=== PATIENT | female | born 1980 | race Caucasian/White ===

== ENCOUNTER 2019-12-11 11:30 | Day surgery (SDC) | payer OTHER ==
[~2019-12-11] VITALS: Ht 162.6 cm; Wt 61.4 kg
[~2019-12-11 11:30] MED LIST: BUPIVACAINE/PF 0.5% ONE; LIDOCAINE/PF 1%, 30ML ONE
[2019-12-11] MEDS ORDERED: LACTATED RINGERS 1,000 ML IV ONE (12:02)
[2019-12-11] MEDS ORDERED: CHLORHEXIDINE 15 ML UDC MM STA (12:02)
[2019-12-11] MEDS ORDERED: FENTANYL PF 100 MCG/2ML IV PRN (12:30)
[2019-12-11] MEDS ORDERED: PROMETHAZINE 25 MG/ML, 1ML IVPush PRN (12:30)
[2019-12-11] MEDS ORDERED: ACETAMINOPHEN 325 MG TABLET PO PRN (12:30)
[2019-12-11] MEDS ORDERED: MEPERIDINE/PF 25MG/0.5ML IVPush PRN (12:30)
[2019-12-11] MEDS ORDERED: DIAZEPAM 5 MG/ML, 2ML IVPush PRN (12:30)
[2019-12-11] MEDS ORDERED: LABETALOL 5MG/ML, 20ML IV PRN (12:30)
[2019-12-11] MEDS ORDERED: ONDANSETRON 2MG/ML, 2ML IVPush PRN (12:30)
[2019-12-11] MEDS ORDERED: OXYcodone 5 MG/5 ML ORAL.SOL UDC PO PRN (12:30)
[2019-12-11] MEDS ORDERED: DIPHENHYDRAMINE 50 MG/ML, 1ML IVPush PRN (12:30)
[2019-12-11] MEDS ORDERED: HYDROmorphone 1 MG/ML, 1ML INJ IVPush PRN (12:30)
[2019-12-11 12:36] VITALS: BP 112/71
[2019-12-11] MEDS ORDERED: baclofen (12:36)
[2019-12-11] MEDS ORDERED: IBUP-1223 PO (12:36)
[2019-12-11] MEDS ORDERED: FENTANYL PF 250 MCG/5ML ONE (12:39)
[2019-12-11] MEDS ORDERED: MIDAZOLAM 1 MG/ML, 2ML ONE (12:39)
[2019-12-11 13:04] LABS: HCG UR SG 1.029 (1.003-1.030)
[2019-12-11] MEDS ORDERED: GLYCOPYRROLATE 0.2MG/1ML, 5ML ONE (13:23)
[2019-12-11] MEDS ORDERED: ONDANSETRON 2MG/ML, 2ML ONE (13:23)
[2019-12-11] MEDS ORDERED: CEFAZOLIN 1,000 MG ONE (13:23)
[2019-12-11] MEDS ORDERED: ROCURONIUM 10MG/ML,5ML ONE (13:23)
[2019-12-11] MEDS ORDERED: DEXAMETHASONE 4 MG/ML, 1ML ONE (13:23)
[2019-12-11] MEDS ORDERED: PHENYLEPHRINE 10 MG/ML ONE (13:23)
[2019-12-11] MEDS ORDERED: PROPOFOL 10 MG/ML, 20ML ONE (13:23)
== END 2019-12-11 15:55 | disposition home or self-care (01) ==
LOC: OUT 11:30
PROVIDERS: ATTEND Orthopaedic Surgery
DX: S92.332A Displaced fracture of third metatarsal bone, left foot, initial encounter for closed fracture (principal); Z20.828 Contact with and (suspected) exposure to other viral communicable diseases; S92.342A Displaced fracture of fourth metatarsal bone, left foot, initial encounter for closed fracture; G35 Multiple sclerosis; Z99.3 Dependence on wheelchair; W18.39XA Other fall on same level, initial encounter; Y93.89 Activity, other specified; Y92.89 Other specified places as the place of occurrence of the external cause; Y99.8 Other external cause status
CPT/HCPCS: 28485; 36415; 73660; 81025; 87635; C1713; J0690; J1100; J2250; J2370; J2405; J2704; J3010; J7120; 76000